=== PATIENT | female | born 1995 | race Native Hawaiian/Other Pacific Islander ===

== ENCOUNTER 2020-06-16 18:24 | Emergency (ER) | payer OTHER ==
[~2020-06-16] VITALS: Ht 170.2 cm; Wt 126.6 kg
[2020-06-16 20:25] VITALS: BP 119/79; TEMP 98.4
== END 2020-06-16 20:37 | disposition home or self-care (01) ==
LOC: ED 18:24
DX: S00.83XA Contusion of other part of head, initial encounter (principal); W21.11XA Struck by baseball bat, initial encounter; Y92.89 Other specified places as the place of occurrence of the external cause
CPT/HCPCS: 99283; J1885

== ENCOUNTER 2020-12-24 15:29 | Emergency (ER) | payer OTHER ==
[~2020-12-24] VITALS: Ht 170.2 cm; Wt 126.6 kg
[2020-12-24 16:06] VITALS: BP 141/93; TEMP 98.9
== END 2020-12-24 17:20 | disposition home or self-care (01) ==
LOC: ED 15:29
DX: K08.89 Other specified disorders of teeth and supporting structures (principal); K02.9 Dental caries, unspecified
CPT/HCPCS: 96372; 99283; J0696; J1885

== ENCOUNTER 2022-09-30 15:00 | Emergency (ER) | payer OTHER ==
[~2022-09-30] VITALS: Ht 170.2 cm; Wt 124.3 kg
[2022-09-30 16:04] LABS: PLATELET COUNT 253 K/uL (152-353)
[2022-09-30 17:25] VITALS: BP 124/80; TEMP 98.2
== END 2022-09-30 17:25 | disposition home or self-care (01) ==
LOC: ED 15:00
PROVIDERS: Family Medicine
DX: N93.9 Abnormal uterine and vaginal bleeding, unspecified (principal); N39.0 Urinary tract infection, site not specified; N92.6 Irregular menstruation, unspecified; N32.89 Other specified disorders of bladder; F17.210 Nicotine dependence, cigarettes, uncomplicated
CPT/HCPCS: 81000; 81025; 85027; 87088; 96361; 96374; 99284; J1885